=== PATIENT | female | born 2000 | race Two or more races ===

== ENCOUNTER 2020-11-02 09:00 | Outpatient (RCR) | payer MEDICAID, SELFPAY ==
--- NOTE | 2020-11-02 09:00 | BH.SGPN.GN ---
Behaviors/Verbalizations/Mental Status: [] Eye contact is good. Motor activity is appropriate. Appearance is disheveled. Speech is Appropriate. Mood is depressed. Affect is flat. Thoughts are linear and logical. No evidence of psychosis. Reviewed daily check in sheet and no reports of suicidal ideations or intent. Client Response/Progress/Benefit: [] Pt participated when prompted. This was pt's first day in IOP and she did not speak much. Introduced herself to the group and stated she was referred to [facility] by her psychiatrist due to depressive and anxiety impacting her functioning. Hoping to learn more skills to help decrease the impact of mental health on daily functioning. . Group was support and provided feedback and advice for her first day and week in IOP. Pt was receptive. Limited benefit as this was pt's first day in IOP. Will continue in IOP to maintain safety, increase healthy coping skills, and improve functioning. Narrative Note: [] This psychotherapy group was provided via telehealth using two-way, real-time interactive telecommunication technology between the patients and the provider. The interactive telecommunication technology included audio and video. The patient was offered telemedicine as an option for care delivery during the COVID-19 pandemic and consented to this option. Patient location: [place] Provider located at [facility]
--- NOTE | 2020-11-02 10:10 | BH.SGPN.GN ---
Behaviors/Verbalizations/Mental Status: [] Eye contact is good. Motor activity is appropriate. Appearance is casual. Speech is Appropriate. Mood is depressed. Affect is flat. Thoughts are linear and logical. No evidence of psychosis. Client Response/Progress/Benefit: [] Pt participated at times in group discussion however only gave one word responses. Due to being virtual she did not particpate in group activity however did watch. Attentive during psychoeducation on factors that build resiliency. Attentive and was nodding in agreement as peer defined resiliency in as bouncing back from difficult times. Attentive as peers also identified what could impact resilience which included; environment, upbringing, family MH beliefs, poverty, support, trauma, never learning coping skills, and emotions. Pt benefited by increasing awareness on the role of resilience in mental health and factors that can help build resiliency. Will continue in IOP to maintain safety and stabilize mood. Narrative Note: []
--- NOTE | 2020-11-02 10:34 | BH.COMM_ITS ---
Communication Note - Communication with Client Communication Note: Met with pt to complete initial paperwork. No significant changes since pre-admission screening. Completed [place] [facility]icide Screening and current risk is low as client denies any active SI, plan, or intent in the past month. History of one previous suicide attempt via overdose in 2012. Client also reports she has begun stockpiling medications in the past, but client denies this currently. Client reports history of self-harm, but client denies any wit hin the past month. Reports some passive suicidal ideations within the past month, but client denies that she would act on these thoughts. Protective factors include family, friends, and her dog. Future oriented. No access to weapons and reports ability to maintain safety today.
--- NOTE | 2020-11-02 11:14 | BH.SGPN.GN ---
This psychotherapy group was provided via telehealth using two-way, real-time interactive telecommunication technology between the clients and the provider. The interactive telecommunication technology included audio and video. The client was offered telemedicine as an option for care delivery during the COVID-19 pandemic and consented to this option. Client location: [place] Provider located at [facility] Behaviors/Verbalizations/Mental Status: []Client alert and oriented, neatly dressed and groomed. Eye contact fair. Motor activity appropriate. Speech within normal limits. Affect constricted, mood anxious. Thoughts linear, logical, no signs of hallucinations or delusions. Client Response/Progress/Benefit: []Client responded well to session, engaged and participated throughout discussion. Client participated in the discussion of how each resiliency component can help increase personal resiliency. Client worked with group to identify ways to practice each of the resiliency traits reviewed. Client shared belief client has the resiliency trait of accepting that change is a part of living. Client stated this has helped client step out of her comfort zone and start IOP. Client would like to work on increasing resiliency by setting and moving towards goals. Client has a test she wants to start preparing for and wants to set a goal to do this. Appeared to benefit from reflecting on already existing resiliency traits and learning how to strengthen resilience. First day of IOP tx. Will continue IOP tx to prevent decompensation, increase emotional regulation skills, and maintain safety. Narrative Note: []
--- NOTE | 2020-11-03 09:00 | BH.SGPN.GN ---
This psychotherapy group was provided via telehealth using two-way, real-time interactive telecommunication technology between the clients and the provider. The interactive telecommunication technology included audio and video. The client was offered telemedicine as an option for care delivery during the COVID-19 pandemic and consented to this option. Client location: [place] Provider located at [facility] Behaviors/Verbalizations/Mental Status: []Client alert and oriented, neatly dressed and groomed. Eye contact fair. Motor activity appropriate. Speech within normal limits. Affect congruent, mood euthymic. Thoughts linear, logical, no signs of hallucinations or delusions. Reviewed client?s symptom tracker, no risk for suicidal ideation, plan, or intent as of 11/03/20 Client Response/Progress/Benefit: [] Client responded well to session, attentive and sharing when prompted. Client reports feeling pretty solid this morning as client does not have many stressors. 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 Client attended IOP yesterday and shared not much has changed since yesterday. Client stated she got her diploma in the mail and she cleaned yesterday which were both mental health wins. Appeared to benefit from connecting with peers and will see psychiatry today. No progress as client started IOP yesterday. Will continue IOP tx to prevent worsening of symptoms and improve daily functioning. Narrative Note: []
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
--- NOTE | 2020-11-03 12:35 | BH.DR.ITP ---
Initial Treatment Plan Patient Information Visit Information: ADMISSION DATE: EXPECTED LOS: 4-6 weeks Problems/Symptoms Problem #1:: Erratic moods Symptom:: Recent history of depression, sadness, hopelessness, low motivation and isolation Symptom:: Biological disruption of sleep, history of thoughts of self-harm 1 month ago Problem #2:: Anxiety Symptom:: Worry, rumination, panic attacks
--- NOTE | 2020-11-04 09:04 | BH.SGPN.GN ---
This psychotherapy group was provided via telehealth using two-way, real-time interactive telecommunication technology between the patients and the provider. The interactive telecommunication technology included audio and video. The patient was offered telemedicine as an option for care delivery during the COVID-19 pandemic and consented to this option. Patient location: [place]. Provider located at [facility] Behaviors/Verbalizations/Mental Status: [] Pt eye contact good, casually dressed, motor activity appropriate, speech normal rate and tone, mood euthymic, congruent affect, thoughts linear and intact, no evidence of delusions or hallucinations. Per patient symptom tracker patient denies current suicidal ideation, plan, or intent. Client Response/Progress/Benefit: []Pt responded well to session AEB pt listening attentively to others and openly sharing thoughts and feelings. Pt identified mental health positive as going to the grocery store despite being anxious. Pt stated additional mental health positive as planning to sign up for a 5k. 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 Pt seemed to benefit from expressing thoughts and feelings. Pt to continue IOP to increase healthy coping, challenge distorted thoughts and prevent decompensation. Narrative Note: []
--- NOTE | 2020-11-04 10:10 | BH.SGPN.GN ---
Behaviors/Verbalizations/Mental Status: [] Eye contact is good. Motor activity is appropriate. Appearance is disheveled. Speech is Appropriate. Mood is depressed. Affect is flat. Thoughts are linear and logical. No evidence of psychosis. Client Response/Progress/Benefit: [] Pt participated at times during group discussion, however only responsed with one word answers. Appears disengaged at times. Did not add any insight into group discussions or educational topic, however did appears attentive. Benefited from group by increasing awareness on the role of perspective in mental health wellness. Will continue in IOP to maintain safety, improve healthy coping, and stabilize mood. Narrative Note: [] This psychotherapy group was provided via telehealth using two-way, real-time interactive telecommunication technology between the patients and the provider. The interactive telecommunication technology included audio and video. The patient was offered telemedicine as an option for care delivery during the COVID-19 pandemic and consented to this option. Patient location: [place] Provider located at [facility]
--- NOTE | 2020-11-04 10:17 | BH.SGPN.GN ---
This psychotherapy group was provided via telehealth using two-way, real-time interactive telecommunication technology between the clients and the provider. The interactive telecommunication technology included audio and video. The client was offered telemedicine as an option for care delivery during the COVID-19 pandemic and consented to this option. Client location: [place] Provider located at [facility] Behaviors/Verbalizations/Mental Status: []Client alert and oriented, neatly dressed and groomed. Eye contact good. Motor activity appropriate. Speech within normal limits. Affect constricted, mood agitated. Thoughts linear, logical, no signs of hallucinations or delusions. Client Response/Progress/Benefit: []Pt engaged participant AEB pt providing input throughout session, listening attentively to peers and completing strengths exploration handout. Pt did struggle to identify strengths which included humor, being a good listener, and honesty. Pt stated these strengths will help client?s mental health recovery by helping client hearing and connecting with others, communicating her needs, and healthy coping skills. Pt seemed to benefit from increased awareness of personal strengths and improved understanding how perspective can impact view of self. Pt is to continue IOP tx to prevent decompensation, improve emotional regulation skills, and increase mood stability. Narrative Note: []
--- NOTE | 2020-11-05 16:04 | BH.DS_ITS ---
Discharge Summary - Demographics Date of Admission:: 11/02/20 Discharge Date: 11/05/20 Presenting Problems at Admission:: Pt is a 20 year old female with hx of MDD, ADHD, Panic D/O, and Borderline PD. Previous psychiatric admission in 2013. Referred to [facility] by her outpatient psychiatrist due to limited progress in traditional outpatient. Pt reports struggling with with mental health for several months. Guarded and vague during pre-admission screening on 10/14/20. According to pt therapy and medications are not helping. Endorsed erratic sleep, low energy, low motivation, hopelessness, anhedonia, isolation, and no pleasure in activities. Reported panic attacks which were occurring on average 3x weekly. Difficulty with focus, concentration, and memory. Denied active suicidal ideations, plan, or intent. Previous suicide attempt in 2013. Reports daily thoughts of and survival ambivalence. Denies HI or psychosis. Denies substance abuse. Currently living with mother. Limited support. Attends individual counseling bi-monthly. Medication compliant. Pt was again very guarded providing minimal information on symptoms. Incongruent mood at times as she would smirk when asked about suicidal ideations, hx of attempt, and current stressors. Family hx of depression. Due to worsening mental health symptoms which are impacting functioning, limited progress in traditional outpatient, and frequent panic attacks recommended [facility] level of care. Discharge Diagnoses:: Bipolar 2 Disorder F31.81 Reason for Discharge:: Pt reports that she is struggling with attending the program virtually. Reports that upon entering [facility] she was depressed however currently believes that she is hypomanic. Currently reports her mood as pretty good and no longer believes that she requires [facility] level of care. - Treatment Progress During Treatment & Response: Limited progress noted. Limited engagement in groups. Issues Still to be Addressed:: Mood instability, Recent acute depressive episode, limited coping skills, hypomania. Discharge Recommendations/Instructions:: Encouraged pt to remain in [facility] despite improved mood due to hypomania, however she declined. Discussion was had about possible ways to improve virtual experience however ultimately pt choose to voluntarily discharge from [facility] level of care. Encouraged her to follow-up with and speak to her outpatient psychiatrist and therapist for additional recommendations of in-person IOPs in the [place] area. Discharge Handout: Complete Discharge Handout with client on aftercare options and continuity of care.
== END 2020-11-05 16:07 | disposition home or self-care (01) ==
LOC: BHIOP 09:00
PROVIDERS: Referring Provider Psychiatry & Neurology Psychiatry; Visit Provider Psychiatry & Neurology Psychiatry
DX: F31.81 Bipolar II disorder (principal); F41.1 Generalized anxiety disorder; E66.9 Obesity, unspecified; G47.33 Obstructive sleep apnea (adult) (pediatric); Z79.899 Other long term (current) drug therapy; Z91.5 Personal history of self-harm; F90.9 Attention-deficit hyperactivity disorder, unspecified type; E28.2 Polycystic ovarian syndrome; Z81.8 Family history of other mental and behavioral disorders
CPT/HCPCS: 90792; H2012; H2020